=== PATIENT | female | born 1945 | race Caucasian/White ===

== ENCOUNTER → 2017-01-06 13:01 | Emergency (ER) | payer MEDICARE, BC ==
[2017-01-06 14:38] LABS: Hematocrit 42 % (35-47); Hemoglobin 14.1 g/dl (12.0-16.0); Mean Corpuscular HGB Conc 33 g/dl (31-36); Mean Corpuscular Hemoglobin 29 pg (27-31); Mean Corpuscular Volume 87 fL (80-97); Mean Platelet Volume 9 um3 (7.4-10.4); Red Blood Count 4.84 10^6/ul (4.0-5.4); Red Cell Distribution Width 13 % (10.5-15)
--- NOTE | 2017-01-06 14:56 | RAD ---
INDICATION: Right hip pain COMPARISON: None TECHNIQUE: An AP view of the pelvis and AP views of the hip in neutral and abducted position were obtained FINDINGS: Bones: There are no acute bony findings. There is a [place] screw in the right femur. There is no evidence of hardware failure. Joint spaces: There is moderate osteoarthritis about both hips with mild axial migration on the right.. SI joints/symphysis: The SI joints and symphysis are intact. Other: None IMPRESSION: JIA SCREW RIGHT HIP. NO EVIDENCE OF HARDWARE FAILURE. UNDERLYING OSTEOARTHRITIS.
--- NOTE | 2017-01-06 14:58 | RAD ---
INDICATION: Right knee pain COMPARISON: None TECHNIQUE: AP, crosstable lateral, tunnel, and sunrise views were obtained. FINDINGS: There are no acute bony findings. There is minor medial joint space 9. There are findings of chondrocalcinosis. There is no joint effusion. IMPRESSION: MINOR ARTHRITIC CHANGE. NO ACUTE FINDINGS.
[2017-01-06 14:59] LABS: Albumin 4.2 g/dL (3.2-5.2); BUN/Creatinine Ratio 20.3 (8-20); C Reactive Protein 3.81 mg/L (< 5.00); Calcium 9.4 mg/dL (8.6-10.3); Potassium 3.7 mmol/L (3.5-5.0); Total Bilirubin 0.5 mg/dL (0.2-1.0); Total Protein 7.2 g/dL (6.4-8.9)
--- NOTE | 2017-01-06 15:43 | ED ---
Lower Extremity - HPI Summary HPI Summary: Patient is a poor historian, but basically comes in due to acute pain in her right hip and knee for the past two days. She thinks this pain is related to a tick bite she had 5 weeks ago. She denies trauma, increase or change in activity or known injury. No N/T, swelling, redness, fevers or bruising. She is very concerned about Lyme disease due to fatigue and her pain. No rash noted. - History of Current Complaint Chief Complaint: EDGeneral Stated Complaint: TICK BITE RIGHT KNEE Time Seen by Provider: 01/06/17 13:12 Hx Obtained From: Patient Mechanism Of Injury: Unknown Onset of Pain: Days Onset/Duration: Still Present Severity Initially: Mild Severity Currently: Severe Pain Intensity: 10 Timing: Constant Location: Is Discrete @ - right hip and knee Character Of Pain: Sharp, Aching Associated Signs And Symptoms: Positive: Knee Pain Aggravating Factor(s): Movement Alleviating Factor(s): Nothing Able to Bear Weight: Yes - Allergies/Home Medications Allergies/Adverse Reactions: Allergies Allergy/AdvReac Type Severity Reaction Status Date / Time Amitriptyline Allergy Dizziness Verified 01/06/17 15:24 Aspirin Allergy itching, Verified 01/06/17 15:23 blisters Calcium Allergy nasal Verified 01/06/17 15:25 discharge Naproxen Allergy tongue Verified 01/06/17 15:23 swelling Vitamin D Allergy fluid Verified 01/06/17 15:24 retention, kidney failure PMH/Surg Hx/FS Hx/Imm Hx Musculoskeletal History: Reports: Hx Fibromyalgia Infectious Disease History: No Infectious Disease History: Denies: Traveled Outside the [place] in Last 30 Days - Family History Known Family History: Positive: None - Social History Occupation: Retired Lives: With Family Alcohol Use: None Substance Use Type: Reports: None Smoking Status (MU): Never Smoked Tobacco Review of Systems Negative: Fever, Chills Negative: Chest Pain Negative: Shortness Of Breath Positive: Myalgia. Negative: Decreased ROM, Edema Negative: Bruising Negative: Weakness, Paresthesia, Numbness All Other Systems Reviewed And Are Negative: Yes Physical Exam Triage Information Reviewed: Yes Vital Signs On Initial Exam: Initial Vitals Temp Pulse Resp BP Pulse Ox 98.9 F 106 20 175/92 98 01/06/17 13:02 01/06/17 13:02 01/06/17 13:02 01/06/17 13:02 01/06/17 13:02 Vital Signs Reviewed: Yes Appearance: Positive: Well-Appearing, No Pain Distress, Well-Nourished Skin: Positive: Warm, Skin Color Reflects Adequate Perfusion, Dry, Soft Head/Face: Positive: Normal Head/Face Inspection Eyes: Positive: EOMI, SU, Conjunctiva Clear ENT: Positive: Hearing grossly normal Neck: Positive: Supple, Nontender, No Lymphadenopathy Respiratory/Lung Sounds: Positive: Clear to Auscultation, Breath Sounds Present Cardiovascular: Positive: RRR Abdomen Description: Positive: Nontender, Soft Bowel Sounds: Positive: Present Musculoskeletal: Positive: Strength/ROM Intact, Pain @ - unable to reproduce patient's pain over right hip, thigh or knee. Negative: Edema Right Neurological: Positive: Sensory/Motor Intact, Alert, Oriented to Person Place, Time, NV Bundle Intact Distally, Normal Gait Psychiatric: Positive: Affect/Mood Appropriate AVPU Assessment: Alert Diagnostics - Vital Signs Vital Signs Temp Pulse Resp BP Pulse Ox 01/06/17 14:11 97 93 01/06/17 14:05 167/92 01/06/17 14:00 178/103 01/06/17 13:43 164/82 01/06/17 13:06 98.6 F 92 16 175/92 99 01/06/17 13:02 98.9 F 106 20 175/92 98 - Laboratory Lab Results: Lab Results 01/06/17 01/06/17 Range/Units 14:20 14:20 WBC 7.0 (3.5-10.8) 10^3/ul RBC 4.84 (4.0-5.4) 10^6/ul Hgb 14.1 (12.0-16.0) g/dl Hct 42 (35-47) % MCV 87 (80-97) fL MCH 29 (27-31) pg MCHC 33 (31-36) g/dl RDW 13 (10.5-15) % Plt Count 169 (150-450) 10^3/ul MPV 9 (7.4-10.4) um3 Neut % (Auto) 51.2 (38-83) % Lymph % (Auto) 37.2 (25-47) % [place] % (Auto) 8.5 (1-9) % Eos % (Auto) 2.7 (0-6) % Baso % (Auto) 0.4 (0-2) % Absolute Neuts (auto) 3.6 (1.5-7.7) 10^3/ul Absolute Lymphs (auto) 2.6 (1.0-4.8) 10^3/ul Absolute Monos (auto) 0.6 (0-0.8) 10^3/ul Absolute Eos (auto) 0.2 (0-0.6) 10^3/ul Absolute Basos (auto) 0 (0-0.2) 10^3/ul Absolute Nucleated RBC 0 10^3/ul Nucleated RBC % 0.1 Sodium 143 (133-145) mmol/L Potassium 3.7 (3.5-5.0) mmol/L Chloride 105 (101-111) mmol/L Carbon Dioxide 29 (22-32) mmol/L Anion Gap 9 (2-11) mmol/L BUN 13 (6-24) mg/dL Creatinine 0.64 (0.51-0.95) mg/dL Est GFR ( Amer) 117.0 (>60) Est GFR (Non-Af Amer) 91.0 (>60) BUN/Creatinine Ratio 20.3 H (8-20) Glucose 113 H (70-100) mg/dL Calcium 9.4 (8.6-10.3) mg/dL Total Bilirubin 0.50 (0.2-1.0) mg/dL AST 17 (13-39) U/L ALT 10 (7-52) U/L Alkaline Phosphatase 79 (34-104) U/L C-Reactive Protein 3.81 (< 5.00) mg/L Total Protein 7.2 (6.4-8.9) g/dL Albumin 4.2 (3.2-5.2) g/dL Globulin 3.0 (2-4) g/dL Albumin/Globulin Ratio 1.4 (1-3) Result Diagrams: 01/06/17 14:20 01/06/17 14:20 Lab Statement: Any lab studies that have been ordered have been reviewed, and results considered in the medical decision making process. - Radiology No standard instances Xray Interpretation: No Acute Changes Radiology Interpretation Completed By: Radiologist Lower Extremity Course/Dx - Course Course Of Treatment: When I told the patient about her negative findings, she reported that she really was most worried about the Lyme disease component and had tried to get in with her PCP this morning for testing. - Diagnoses Differential Diagnosis/HQI/PQRI: Positive: Arthritis, Bursitis, Contusion, Fracture (Closed), Sprain, Strain Provider Diagnoses: Right hip pain, Right knee pain Discharge - Discharge Plan Condition: Stable Disposition: HOME Patient Education Materials: Knee Pain (ED), Lyme Disease (ED) Referrals: Jose LI,Diony Velazquez [Primary Care Provider] - Additional Instructions: Please follow-up with your primary care provider this week to discuss your concerns about Lyme disease.
[2017-01-06 16:11] VITALS: BP 145/85
== END | disposition home or self-care (01) ==
LOC: ED 13:01
DX: M25.551 Pain in right hip (principal); M25.561 Pain in right knee; M79.7 Fibromyalgia
CPT/HCPCS: 36415; 80053; 85025; 86140; 86618; 99282